=== PATIENT | male | born 1985 | race Two or more races ===

== ENCOUNTER 2016-07-22 11:25 | Emergency (ER) | payer MEDICAID ==
[~2016-07-22] VITALS: Ht 175.3 cm; Wt 56.7 kg
[2016-07-22 12:46] VITALS: BP 137/83
== END 2016-07-22 13:42 | disposition home or self-care (01) ==
LOC: ER 11:26
DX: L92.3 Foreign body granuloma of the skin and subcutaneous tissue (principal); J45.909 Unspecified asthma, uncomplicated; F12.10 Cannabis abuse, uncomplicated
CPT/HCPCS: 73060